=== PATIENT | female | born 1985 ===

== ENCOUNTER 2017-02-24 04:59 | Inpatient (IN) | payer OTHER ==
[2017-02-24 05:24] VITALS: BMI 31.0
[2017-02-24] MEDS ORDERED: PENICILLIN G POTASSIUM 5 MMU in NS 0.9% (MINI-BAG PLUS) 100 ML IV ONE (06:12)
[2017-02-24] MEDS ORDERED: OXYTOCIN IN LR 500 ML IV ONE ×2 (06:12→18:00)
[2017-02-24] MEDS ORDERED: LACTATED RINGERS 1,000 ML IV SCH ×2 (06:15→16:57)
[2017-02-24] MEDS ORDERED: IV START KIT ONE (06:18)
[2017-02-24] MEDS ORDERED: PENICILLIN G POTASSIUM 5 MMU VIAL ONE (06:22)
[2017-02-24] MEDS ORDERED: NS 0.9% (MINI-BAG PLUS) 100 ML IV ONE (06:22)
[2017-02-24 06:39] LABS: AMPHETAMINES/METHAMPHETAMINES NEGATIVE (NEGATIVE); COCAINE NEGATIVE (NEGATIVE); MARIJUANA POSITIVE (NEGATIVE); METHADONE NEGATIVE (NEGATIVE); OPIATES NEGATIVE (NEGATIVE); TRICYCLIC ANTIDEPRESSANTS NEGATIVE (NEGATIVE)
[2017-02-24 09:09] LABS: HEMATOCRIT 35.8 % (37.0-47.0); HEMOGLOBIN 11.8 gm/l (12.0-16.0); MEAN CELL VOLUME 85.9 fl (81.0-99.0); MEAN CORPUSCULAR HEMOGLOBIN 28.3 pg (27.0-31.0); RED CELL DISTRIBUTION WIDTH 12.9 % (11.5-14.5)
--- NOTE | 2017-02-24 09:25 | PCMAN ---
OB Admission Note - History : 3 Term: 1 : 0 Abortions (S&E): 1 Livin Gestational Age (weeks): 40 Days (#/7): 4 Admit Presentaton:: vertex Membrane Status: Ruptured Rupture (Date): 02/24/17 Rupture (Time): 03:45 Contractions: Yes Contraction Frequency:: rare Heart Rate:: 120 Status:: cat 1 EFW:: 3.5 kg Summary of Course:: Benign course after first trimester with severe hyperemesis gravidarum with 25# wt. loss. Has h/o THC use and will continue. UDS+ in clinic and hosp. Plans to continue use and to breast feed. - Labs Blood Type: A (-) negative Hct/Hgb:: 12 Rubella Status: Immune GBS Status: Positive Abnormal Labs: Urine Toxicology Positive (THC+) - Review of Systems No F/C/N/V. No flu like illness. Feels overall well. Did use asthma inhaler this am. No recent asthma exacerbations. Carpal tunnel, right hip pain started during . - Physical Exam General: Afebrile, No Acute Distress Psych/Mental Status: Mood/Affect Appropriate Neurological: Grossly Intact Lungs: Clear to Auscultation Bilaterally Cardiovascular: Regular Rate and Rhythm, No Murmur Abdomen: Other (gravid, non tender uterus, baby vertex by exam and us.), No Obese, No Tenderness Extremities: No Edema Skin: Warm, Dry, No Rash - Problems (1) Marijuana use Status: Acute Code: F12.10Assessment/Plan: termination clerk use, will breast feed and continue use. Discussion held, information given. No further f/u needed at this time. Low risk for concurrent/other drug use. (2) Normal in multigravida Status: Acute Code: Z34.80Assessment/Plan: Peds: [facility]. PROM: Not in labor, admit, observe. PIT if no labor. BC: Wants PPTL, will get consent for chart. Labor: Desires positional changes, epidural if slow labor. (3) Positive GBS test Status: Acute Code: B95.1Assessment/Plan: Penicillin per protocol. (4) PROM (premature rupture of membranes) Status: Acute Code: O42.90Assessment/Plan: Continue to observe, eat and ambulate. PIT if no labor. (5) Asthma Status: Acute Code: J45.909Assessment/Plan: On daily inhalers, dulera daily and albuterol PRN. Used this am. Avoid hemovate for pp hemorrhage, discussed with pt. and RN. Will order inhalers for use prn. (6) Rh negative state in antepartum period Status: Acute Code: O09.899Assessment/Plan: Rhogam given at 28 weeks. Follow protocol after delivery. (7) Sterilization consult Status: Acute Code: Z30.09Assessment/Plan: Signed consent in clinic, will print for chart.
[2017-02-24] MEDS ORDERED: PENICILLIN G 3 MIL UNIT PREMIX 50 ML IV ONE ×4 (11:33→23:43)
[2017-02-24] MEDS: PENICILLIN G 3 MIL UNIT PREMIX 3 MMU in Premix (D5W) 50 ml 1 EACH IV SCH ×4 (12:06→23:56)
--- NOTE | 2017-02-24 14:24 | PDOC36 ---
Provider Note Subject: Doing well. Cervix /-2. Small forebag noted and broken. Pt. with more uc' s and becoming more uncomfortable. Penicillin in X 2 doses. VSSAF. HR 130 with accel, just put on monitor so no strip available to review currently for category. Pain control with positional changes as UC's continue to increase.
[2017-02-24] MEDS ORDERED: CALCIUM CARBONATE 500 MG TAB.CHEW PO PRN (15:19)
[2017-02-24] MEDS ORDERED: DIPHENHYDRAMINE HCL 50 MG/1 ML VIAL IV PRN (16:57)
[2017-02-24] MEDS ORDERED: NALBUPHINE HCL 20 MG/ML AMP IV PRN (16:57)
[2017-02-24] MEDS ORDERED: EPIDURAL PROCEDURE TRAY ONE (16:57)
[2017-02-24] MEDS ORDERED: NALOXONE HCL 0.4 MG/ML VIAL IV PRN (16:57)
[2017-02-24] MEDS ORDERED: SODIUM CHLORIDE 0.9% 500 ML IV PRN (16:57)
[2017-02-24] MEDS ORDERED: EPHEDRINE SULFATE 50 MG/ML 1ML VIAL IV PRN (16:57)
[2017-02-24] MEDS ORDERED: METOCLOPRAMIDE HCL 5 MG/ML 2ML VIAL IV PRN (16:57)
[2017-02-24] MEDS ORDERED: BUPIVACAINE 0.25% (PRES FREE) 30 ML VIAL ONE (16:57)
[2017-02-24] MEDS ORDERED: ONDANSETRON 4 MG/2ML 2 ML VIAL IV PRN (16:57)
[2017-02-24] MEDS ORDERED: LACTATED RINGERS 500 ML IV PRN (16:57)
[2017-02-24] MEDS ORDERED: FENTANYL/ROPIVACAINE EPIDURAL 250 ML EP ONE (16:59)
[2017-02-24] MEDS ORDERED: EPIDURAL PUMP SET ONE (16:59)
[2017-02-24] MEDS: FENTANYL/ROPIVACAINE EPIDURAL 250 ML EP SCH (17:17)
[2017-02-24] MEDS ORDERED: OXYTOCIN 10 UNITS/ML VIAL ONE (17:59)
[2017-02-24] MEDS ORDERED: MINERAL OIL 25 ML BOT ONE (18:00)
[2017-02-24] MEDS ORDERED: LIDOCAINE Viscous 2% 15 ML UDCUP ONE (18:00)
[2017-02-24] MEDS ORDERED: LIDOCAINE 1% (PRES FREE) 30 ML VIAL ONE (18:00)
[2017-02-24] MEDS ORDERED: PUMP TUBING ONE (18:00)
--- NOTE | 2017-02-24 19:22 | PDOC36 ---
Provider Note Subject: Cervix 7-8/90%/-1. Epidural was placed earlier for maternal comfort. VSSAF. Cat 2 FHT for variable around epidural placement, resolved with fluids/ positional changes. UC's persistent every 2-3 minutes. RN notes/discussion reviewed. Pt. doing much better. Await cervical dilation and advancement to complete.
--- NOTE | 2017-02-24 22:53 | PDOC36 ---
Provider Note Subject: Uc's every 3-4 min, epidural working well. Still with some lof. Exam 8-//- 1. VSSAF. Slow progress. Will work on positional changes and recheck in a few hours. If no change, consider IUPC and PIT. Cat 1 strip followed by cat 2 strip for nova variable, resolved with positional changes/fluid bolus. Discussed with pt. slow change and progress. Questions answered.
[2017-02-24] MEDS: LACTATED RINGERS 1,000 ML IV PRN (23:59)
[2017-02-25] MEDS ORDERED: ALBUTEROL SULFATE 200 PUFFS/INH INHALER IH PRN (01:54)
--- NOTE | 2017-02-25 01:54 | PDOC36 ---
Provider Note Subject: No cervical change despite regular uterine contractions. Cat 1 and 2 FHT's, currently cat 2 for increased heart rate since changing positions. WIll bolus fluid, change positions and re eval in 30 min. Discussed lack of cervical change and options. PIT not an option with tachy and having regular uterine contractions. If uc's slow and tachy resolves then can consider IUPC and PIT. Discussed risks of IUPC and length of ROM. Pt. also with concentrated urine and has received 4 bags of fluid in setting of vomiting. May still be dehydrated. In setting of asthma, will order her inhalers although not SOB now. Will check O2 sat. Pt. a/w long h/o THC use 5-8 times daily and not used in nearly 24 hours. Could be some early withdrawal symptoms in mom as she is having more nausea. Follow closely, reviewed indications for c section etc. Questions answered. VSSAF.
[2017-02-25] MEDS: LACTATED RINGERS 1,000 ML IV PRN (02:43)
[2017-02-25] MEDS ORDERED: ACETAMINOPHEN 500 MG TABLET ONE (02:50)
[2017-02-25] MEDS ORDERED: ACETAMINOPHEN 500 MG TABLET PO ONE (02:52)
--- NOTE | 2017-02-25 03:04 | PDOC36 ---
Provider Note Subject: heart rate down from 180 to 160 with variability. Cat 2 for HR, no variables. Tried hands and knees to get pressure off of pubis/catheter as pt c/ o pain a/w catheter. Had blood tinged urine and RN from day shift said difficult to place. Scanned with hand held us did not see fluid accumulation but limited by low position of head. Catheter replaced to assure not traumatic and good placement. Easy exchange of new catheter with no significant return of urine. Has had 4 L in about 24 hours with probable deficit on presentation to [facility] of 1.5-2L. Will given another fluid bolus. She is averaging about 25ml per hour of urine out. Cervix now 9/90/-1 with probable asynclitic presentation and looked OP with US as well. Last maternal temp 100 axillary. At risk for chorio given prolonged ROM. Will given tylenol 1000mg X 1 and recheck, abx if develops chorio. Discussed possible need for section given arrest of dilation at 9 cm. Add: During note, fht's now at 150 with moderate variability.
[2017-02-25] MEDS ORDERED: PENICILLIN G 3 MIL UNIT PREMIX 50 ML IV ONE ×2 (03:25→07:46)
[2017-02-25] MEDS: PENICILLIN G 3 MIL UNIT PREMIX 3 MMU in Premix (D5W) 50 ml 1 EACH IV SCH ×2 (03:42→07:49)
--- NOTE | 2017-02-25 06:50 | PDOC36 ---
Provider Note Subject: ant lip/0. Doing well. Pain controlled. Cat 1 FHT's. No fever spike. Less pressure in suprapubic area, epidural working well. VSSAF. Having very little uop, has received 5 L of LR in 24 hours. Not drinking fluids as possible c section. Lungs are clear, 1+BLE. No sob. For low uop, will check cmp, bolus another 500. Urrutia has already been replaced. THC dependence: 24 hours without use. Pt with some tachycardia. Follow closely.
[2017-02-25 07:02] LABS: HEMATOCRIT 32.9 % (37.0-47.0); HEMOGLOBIN 11.1 gm/l (12.0-16.0); MEAN CELL VOLUME 84.6 fl (81.0-99.0); MEAN CORPUSCULAR HEMOGLOBIN 28.5 pg (27.0-31.0); MEAN CORPUSCULAR HGB CONC 33.7 g/dl (33.0-37.0); RED CELL DISTRIBUTION WIDTH 13.2 % (11.5-14.5)
[2017-02-25 07:31] LABS: ALBUMIN 2.7 gm/dL (3.5-5.7); CALCIUM 8.6 mg/dL (8.6-10.3)
[2017-02-25] MEDS ORDERED: FORMOTEROL IH SCH (09:00)
[2017-02-25] MEDS ORDERED: MOMETASONE IH SCH (09:00)
[2017-02-25] MEDS ORDERED: CEFAZOLIN SODIUM 2 GRAM DUPLEX 2 G in Premix (D5W) 50 ml 1 EACH IV PRN (09:02)
[2017-02-25] MEDS ORDERED: CEFAZOLIN SODIUM 2 GRAM DUPLEX 50 ML IV ONE (09:05)
[2017-02-25] MEDS ORDERED: LACTATED RINGERS 1,000 ML IV SCH (09:15)
[2017-02-25] MEDS ORDERED: ROPIVACAINE 0.5% 30 ML VIAL ONE (09:31)
[2017-02-25] MEDS ORDERED: FENTANYL 100 MCG/2 ML VIAL ONE (09:31)
[2017-02-25] MEDS ORDERED: LIDOCAINE 2% (PRES FREE) 5 ML VIAL ONE ×2 (09:31→10:44)
--- NOTE | 2017-02-25 09:32 | PDOC36 ---
Provider Note Subject: Pt. with no cervical change despite adequate UC's. Cervix now swollen, all around cervix is felt and head at 0 station. Uc's palpate firm and have been very regular. We discussed the options of IUPC/PIT/Section and given stage 1 arrest at 9 cm with swelling cervix pt. opts and agrees with primary section. I spoke with the patient about the risks and benefits of c section including but not limited to bleeding, infection, damage to bowel/bladder, blood transfusion and the permanence of BTL with other nursing home methods of control available. Pt. agrees with primary section with BTL. Currently, VSSAF, cat 1 FHT's. UOP improved after bolus of 1 more L of LR, on bag # 7 since presentation. CBC/CMP reviewed with elevated CR and decr GFR. will deliver and follow uop closely pp. Dr. Kurtz aware of care and will be in c section.
[2017-02-25] MEDS ORDERED: OXYTOCIN 10 UNITS/ML VIAL ONE ×3 (10:18→11:19)
[2017-02-25] MEDS ORDERED: FAMOTIDINE 10 MG/ML 2ML VIAL ONE (10:26)
[2017-02-25] MEDS ORDERED: METOCLOPRAMIDE HCL 5 MG/ML 2ML VIAL ONE (10:26)
[2017-02-25] MEDS ORDERED: ONDANSETRON 4 MG/2ML 2 ML VIAL ONE (10:26)
[2017-02-25] MEDS ORDERED: MORPHINE SULFATE (DURAMORPH) 1 MG/ML 10ML AMP ONE (10:34)
[2017-02-25] MEDS ORDERED: DIPHENHYDRAMINE HCL 50 MG/1 ML VIAL IV PRN ×2 (10:35→11:20)
[2017-02-25] MEDS ORDERED: HYDROMORPHONE HCL 2 MG/ML SYRINGE IV PRN (10:35)
[2017-02-25] MEDS ORDERED: ONDANSETRON 4 MG/2ML 2 ML VIAL IV PRN ×2 (10:35→11:20)
[2017-02-25] MEDS ORDERED: MORPHINE SULFATE 4 MG/ML SYRINGE IV PRN ×2 (10:35→11:22)
[2017-02-25] MEDS ORDERED: MORPHINE SULFATE 2 MG/ML SYRINGE IV PRN (10:35)
[2017-02-25] MEDS ORDERED: MORPHINE SULFATE 10 MG/ML SYRINGE IV PRN (10:35)
[2017-02-25] MEDS ORDERED: PROMETHAZINE HCL 25 MG/ML VIAL IM PRN (10:35)
[2017-02-25] MEDS ORDERED: EPHEDRINE SULFATE 50 MG/ML 1ML VIAL IV PRN (10:35)
[2017-02-25] MEDS ORDERED: PNEUMOCOCCAL 23-VAL P-SAC VAC 0.5 ML VIAL SUB-Q V ONE (10:35)
[2017-02-25] MEDS ORDERED: NALBUPHINE HCL 20 MG/ML AMP IV PRN (10:35)
[2017-02-25] MEDS ORDERED: HYDROMORPHONE HCL 1 MG/ML SYRINGE IV PRN (10:35)
[2017-02-25] MEDS ORDERED: NALOXONE HCL 0.4 MG/ML VIAL IV PRN (10:35)
[2017-02-25] MEDS ORDERED: OXYCODONE HCL 5 MG TABLET PO PRN (11:20)
[2017-02-25] MEDS ORDERED: DIPHENHYDRAMINE HCL 25 MG CAPSULE PO PRN (11:20)
[2017-02-25] MEDS ORDERED: LANOLIN 50 APPLIC/7G TUBE TP PRN (11:20)
--- NOTE | 2017-02-25 11:42 | PDOC37 ---
Note:: DATE OF PROCEDURE 2017-02-25 PREOPERATIVE DIAGNOSES Term Failure to Progress Desire for Sterility POSTOPERATIVE DIAGNOSES Same PROCEDURE Primary Low Transverse Section and BTL SURGEON August Kurtz MD [facility] SENIOR [employer]WORK SECURITY ARCHITECT Archana Kim MD ANESTHESIA Epidural COMPLICATIONS None ESTIMATED BLOOD LOSS 1,000 mL URINE OUTPUT 125 mL IV FLUIDS 2,200 mL START TIME 10:06 AM IMPLANTS None SPECIMENS Right and Left Fallopian Tubes BRIEF HISTORY 31 yo at 40 4/7 admitted for PROM who progressed over 24 hour period to a rim at 0 station but did not progress further for several hours. OPERATIVE NOTE Verbal and written informed consent was obtained. The patient was taken to the operating room where spinal anesthesia was found to be adequate.~ She was then placed in the dorsal supine position with a leftward tilt and prepped and draped in a sterile fashion.~ Surgical timeout was performed confirming the patient's name, date of , surgical procedure to be performed and any concerns from team members.~ A Pfannenstiel skin incision was then made with the scalpel and carried through to the underlying layer of fascia.~ The fascia was incised in the midline and the incision extended laterally with the Childers scissors.~ The superior aspect of the fascial incision was then grasped with Brooke clamps, elevated and the underlying rectus muscles dissected off bluntly and with Childers scissors.~ Attention was then turned to the inferior aspect of this incision, which in similar fashion was grasped, tented up with Brooke clamps, and the rectus muscle dissected of bluntly with Childers scissors.~ The rectus muscles were then bluntly in the midline, and the peritoneum identified, tented up, and entered sharply with Metzenbaum scissors. ~ The peritoneal incision was then extended superiorly and inferiorly with good visualization of the bladder.~ The bladder was distended and extending up into the pelvis. An Adis retractor was inserted.~ The visceroperitoneum was grasped with smooth pickups, entered with Metzenbaum scissors, and extended laterally. A bladder flap was created by gentle blunt dissection and placed behind the bladder blade. The lower uterine segment was then incised in a transverse fashion with the scalpel.~ The uterine incision was then bluntly extended revealing the amniotic sac which was ruptured with clear fluid.~ The 's head was grasped, flexed and elevated to level of the hysterotomy and the head was then delivered atraumatically.~ The head was ROP. There was thick meconium, but there was a vigorous cry immediately. The mouth and nose were bulb suctioned and the cord clamped and cut after 1 minute.~ The infant was handed off to the waiting resuscitation team.~ Cord gases were not required. The placenta was then removed via cord traction and fundal massage; the uterus was cleared of all clots and debris.~ The uterine incision was repaired with 0 Vicryl in a running, locked fashion.~ The second layer was imbricated with 0 Vicryl in a running fashion. Hemostasis was checked and areas of bleeding were repaired with figure of eight stitches using 0 Vicryl and the Bovie. The gutters were cleared of all clots.~ Hemostasis was carefully checked and found to be satisfactory.~ The peritoneum was reapproximated with 2-0 vicryl in a running fashion. The fascia was reapproximated with 0 Vicryl in a running fashion.~ Bleeding points were Bovie coagulated. The subcutaneous tissue was reapproximated with 0 plain and the skin was closed subcutaneously using 4-0 vicryl with a subcuticular stitch.~ A sterile dressing was placed. The patient tolerated the procedure well.~ Sponge, lap and needle counts were correct times two. The patient was taken to the recovery room in stable condition.
[2017-02-25] MEDS: LACTATED RINGERS 1,000 ML IV SCH (12:28)
[2017-02-25] MEDS: KETOROLAC TROMETHAMINE 30 MG/ML 1 ML VIAL IV SCH ×3 (17:59→23:59)
[2017-02-25] MEDS: HYDROCODONE/ACETAMINOPHEN 5/325MG TABLET PO PRN (22:49)
[2017-02-25] MEDS: DOCUSATE SODIUM 100 MG CAPSULE PO SCH (22:49)
[2017-02-26] MEDS: KETOROLAC TROMETHAMINE 30 MG/ML 1 ML VIAL IV SCH ×2 (05:59→10:50)
[2017-02-26 06:39] LABS: HEMATOCRIT 26.9 % (37.0-47.0)
[2017-02-26 06:54] LABS: CALCIUM 8.2 mg/dL (8.6-10.3)
[2017-02-26] MEDS ORDERED: FERROUS SULFATE (65 Fe) 325 MG TABLET PO SCH (09:00)
--- NOTE | 2017-02-26 10:46 | PDOC44 ---
- Subjective Day: 1 Good UOP postoperatively Reports Flatus, Reports Pain Tolerable, Reports , Reports Lochia Light, Reports Tolerating Regular Diet, Denies Nausea - Objective Temp Pulse Resp BP Pulse Ox 97.9 F 82 16 118/77 98 02/26/17 07:18 02/26/17 07:18 02/26/17 07:18 02/26/17 07:18 02/25/17 12:35 Lab Results 02/26/17 06:07 Hgb 9.0 L D Hct 26.9 L Creatinine 0.8 02/26/17 06:07 Calcium 8.2 L Current Medications Generic Name Dose Route Start Last Admin Trade Name Freq PRN Reason Stop Dose Admin Acetaminophen/Hydrocodone Bitart 1 - 2 tab 02/25/17 11:20 02/25/17 22:49 [place] 5/325 PO 1 tab Q4H PRN Administration Pain (Moderate) Diphenhydramine HCl 25 - 50 mg 02/25/17 11:20 Benadryl PO Q6H PRN Itching (Mild/Moderate) Diphenhydramine HCl 25 - 50 mg 02/25/17 11:20 Benadryl IV Q6H PRN Itching (Severe) Docusate Sodium 100 mg 02/25/17 21:00 02/25/17 22:49 Colace PO 100 mg BID [place] Administration Emollient Ointment 1 applic 02/25/17 11:20 [id number] TP PRN PRN sore nipples Ferrous Sulfate 325 mg 02/26/17 09:00 Ferrous Sulfate PO DAILY [place] Ropivacaine/Fentanyl/NS 250 mls @ 0 mls/hr 02/24/17 16:57 02/24/17 17:17 Fentanyl 2 Mcg/Ml + Ropivacaine 0.125% Ep Bag EP 10 mls/hr EPI [place] Administration Protocol Per Protocol Lactated Ringer's 1,000 mls @ 125 mls/hr 02/25/17 11:30 02/25/17 12:28 Lactated Ringers IV 125 mls/hr .Q8H [place] Administration Morphine Sulfate 4 mg 02/25/17 11:22 Morphine Sulfate IV Q1H PRN Pain Multivi/Iron Carb/Fe Sulf/FA/Prenat 1 tab 02/26/17 09:00 Plus PO DAILY [place] Ondansetron HCl 4 mg 02/25/17 11:20 Zofran IV Q6H PRN Nausea/Vomiting Oxycodone HCl 5 - 10 mg 02/25/17 11:20 Roxicodone PO Q3H PRN Pain (Severe) Sodium Chloride 10 ml 02/25/17 17:00 02/26/17 05:59 Normal Saline 10ml Flush IV 10 ml Q8HR [place] Administration Sodium Chloride 10 ml 02/25/17 16:10 02/26/17 07:26 Normal Saline 10ml Flush IV 10 ml PRN PRN Administration - Physical Exam General: Afebrile Psych/Mental Status: Mood/Affect Appropriate, Judgment/Insight Intact, Bonding Well Neurological: Grossly Intact, Alert HEENT: Atraumatic, EOMI Lungs: Clear to Auscultation Bilaterally, Normal Air Movement Cardiovascular: Regular Rate and Rhythm, Normal S1, Normal S2, No Murmur Fundus: Firm, Midline Extremities: Edema (trace), Normal Pulses Wound SHOP LABORER: Dressing in Place, Dressing Clean/Dry/Intact - Problems:Assessment/Plan (1) Status post primary low transverse section Status: AcuteAssessment/Plan: POD#1 PLTCS with BTL for arrest of dilation at 9cm Meeting postop milestones Pt utox positive, smoked daily MJ during Desires exclusive , discussed high concentration of MJ in breastmilk Encouraged ambulation, get up to shower. Urrutia out (2) Rh negative state in antepartum period Status: AcuteAssessment/Plan: Rhogam given at 28 weeks. Baby is A negative. (3) Marijuana use Status: AcuteAssessment/Plan: retirement use, will breast feed and continue use. Discussion held, information given. Low risk for concurrent/other drug use. SW will be notified, [facility] will be notified per hospital policy (4) Asthma Status: AcuteAssessment/Plan: On daily inhalers, dulera daily and albuterol PRN. Will order inhalers for use prn. (5) Sterilization consult Status: AcuteAssessment/Plan: s/p BTL (6) Acute renal insufficiency Status: AcuteAssessment/Plan: likely 2/2 obstruction, initial Cr of 1.5. Pt rec'd 9L of LR during labor. Cr normalized, now 0.8 today. Excellent diuresis postoperatively.
[2017-02-26] MEDS: DOCUSATE SODIUM 100 MG CAPSULE PO SCH ×2 (10:48→19:24)
[2017-02-26] MEDS: PRENATAL VIT/FE FUMARATE/FA 1 TABLET PO SCH (10:48)
[2017-02-26] MEDS: HYDROCODONE/ACETAMINOPHEN 5/325MG TABLET PO PRN ×3 (10:48→21:41)
[2017-02-26] MEDS: LACTATED RINGERS 1,000 ML IV SCH ×2 (10:49→13:25)
[2017-02-26] MEDS: FENTANYL/ROPIVACAINE EPIDURAL 250 ML EP SCH (10:49)
[2017-02-26] MEDS ORDERED: ALBUTEROL SULFATE MDI 60 PUFFS/INHALER IH PRN (11:46)
[2017-02-26] MEDS ORDERED: IBUPROFEN 800 MG TABLET ONE (11:57)
[2017-02-26] MEDS: IBUPROFEN 800 MG TABLET PO PRN ×2 (12:30→21:41)
[2017-02-27] MEDS: DOCUSATE SODIUM 100 MG CAPSULE PO SCH ×3 (01:53→21:37)
[2017-02-27] MEDS: HYDROCODONE/ACETAMINOPHEN 5/325MG TABLET PO PRN ×2 (01:59→05:54)
[2017-02-27] MEDS: LACTATED RINGERS 1,000 ML IV SCH ×3 (02:01→12:23)
[2017-02-27] MEDS: IBUPROFEN 800 MG TABLET PO PRN ×3 (05:54→21:37)
--- NOTE | 2017-02-27 09:24 | PDOC44 ---
- Subjective Day: 2 doing well. pain is controlled. tolerating regular diet. ambulating and voiding well. Reports Flatus, Reports Pain Tolerable, Reports , Reports Lochia Light, Reports Tolerating Regular Diet - Objective Temp Pulse Resp BP Pulse Ox 98.3 F 74 14 110/80 98 02/27/17 07:15 02/27/17 07:15 02/27/17 07:15 02/27/17 07:15 02/25/17 12:35 Current Medications Generic Name Dose Route Start Last Admin Trade Name Freq PRN Reason Stop Dose Admin Acetaminophen/Hydrocodone Bitart 1 - 2 tab 02/25/17 11:20 02/27/17 05:54 [place] 5/325 PO 1 tab Q4H PRN Administration Pain (Moderate) Albuterol Sulfate 2 puffs 02/26/17 11:46 Ventolin Hfa Mdi IH Q4H PRN Shortness of Breath Diphenhydramine HCl 25 - 50 mg 02/25/17 11:20 Benadryl PO Q6H PRN Itching (Mild/Moderate) Diphenhydramine HCl 25 - 50 mg 02/25/17 11:20 Benadryl IV Q6H PRN Itching (Severe) Docusate Sodium 100 mg 02/25/17 21:00 02/27/17 01:53 Colace PO Not Given BID [facility] Emollient Ointment 1 applic 02/25/17 11:20 [id number] TP PRN PRN sore nipples Ferrous Sulfate 325 mg 02/27/17 09:00 Ferrous Sulfate PO BID [facility] Ropivacaine/Fentanyl/NS 250 mls @ 0 mls/hr 02/24/17 16:57 02/26/17 10:49 Fentanyl 2 Mcg/Ml + Ropivacaine 0.125% Ep Bag EP Not Given EPI [place] Protocol Per Protocol Lactated Ringer's 1,000 mls @ 125 mls/hr 02/25/17 11:30 02/27/17 05:02 Lactated Ringers IV Not Given .Q8H [place] Ibuprofen 800 mg 02/26/17 11:59 02/27/17 05:54 Motrin PO 800 mg Q8H PRN Administration Pain Morphine Sulfate 4 mg 02/25/17 11:22 Morphine Sulfate IV Q1H PRN Pain Multivi/Iron Carb/Fe Sulf/FA/Prenat 1 tab 02/26/17 09:00 02/26/17 10:48 Plus PO 1 tab DAILY [place] Administration Ondansetron HCl 4 mg 02/25/17 11:20 Zofran IV Q6H PRN Nausea/Vomiting Oxycodone HCl 5 - 10 mg 02/25/17 11:20 Roxicodone PO Q3H PRN Pain (Severe) Sodium Chloride 10 ml 02/25/17 17:00 02/27/17 01:59 Normal Saline 10ml Flush IV 10 ml Q8HR [place] Administration Sodium Chloride 10 ml 02/25/17 16:10 02/26/17 16:20 Normal Saline 10ml Flush IV 10 ml PRN PRN Administration - Physical Exam General: Afebrile Neurological: Alert Lungs: Clear to Auscultation Bilaterally Cardiovascular: Regular Rate and Rhythm Breast: Soft Fundus: Firm Abdomen: Normal Bowel Sounds Lochia: Light Rectal Exam: Other Extremities: Other Skin: Normal Color Wound LEAD EMBEDDED SOFTWARE ENGINEER: Well Approximated - Problems:Assessment/Plan (1) Status post primary low transverse section Status: AcuteAssessment/Plan: POD#2 PLTCS with BTL for arrest of dilation at 9cm Pt utox positive, smoked daily MJ during Desires exclusive , discussed high concentration of MJ in breastmilk Encouraged ambulation, get up to shower. voiding well. tolerating regular diet (2) Acute renal insufficiency Status: AcuteAssessment/Plan: likely 2/2 obstruction, initial Cr of 1.5. Pt rec'd 9L of LR during labor. Cr normalized, now 0.8 today. Excellent diuresis postoperatively. doing well now. (3) Marijuana use Status: AcuteAssessment/Plan: [facility] use, will breast feed and continue use. Discussion held, information given. Low risk for concurrent/other drug use. SW will be notified, [facility] will be notified per hospital policy (4) Asthma Status: AcuteAssessment/Plan: On daily inhalers, dulera daily and albuterol PRN. Will order inhalers for use prn. Disposition: Anticipate DC Home Tomorrow
[2017-02-27] MEDS: FERROUS SULFATE (65 Fe) 325 MG TABLET PO SCH ×2 (10:09→21:37)
[2017-02-27] MEDS: PRENATAL VIT/FE FUMARATE/FA 1 TABLET PO SCH (10:09)
--- NOTE | 2017-02-27 11:54 | SURGPATH ---
[facility] [address] [place] [id number] Patient Name: JOHN GONZALEZ MR#: [id number] : 1985 Gender: F Specimen #: [id number] Collected: 02/25/2017 Received: 02/26/2017 Reported: 02/27/2017 Submitting Phys: MELANIE CARO Copy To Phys: [facility] JERILYN TRONCOSO LAUREN Clinical History / Pre-Operative Diagnosis: PERMANENT STERILIZATION Specimen Source / Surgical Procedure Performed: RIGHT FALLOPIAN TUBE SEGMENT (WITH STITCH), LEFT FALLOPIAN TUBE SEGMENT-BILATERAL TUBAL LIGATION Interpretation: RIGHT AND LEFT FALLOPIAN TUBES, TUBAL LIGATION: -SEGMENTS OF FALLOPIAN TUBES PRESENT Electronically Signed Out Shailesh Tracey M.D. Gross Description: The specimen is received in a formalin filled container labeled with the patient's name and "right and left fallopian tubes". Two cylindrical segments of zuniga tissue are 1.3 x 0.5 cm and 1.7 x 0.5 cm. The shorter segment has an attached suture and is inked black. A inbound sales representative cross-section of each is submitted in one cassette. Ottoniel Contreras Microscopic Description: A slide contains unremarkable cross sections of both fallopian tubes. 1: [id number]) Z30.2
[2017-02-28] MEDS: IBUPROFEN 800 MG TABLET PO PRN (05:34)
[2017-02-28 07:31] VITALS: BP 128/85
--- NOTE | 2017-02-28 10:43 | PDOC39B ---
Hospital Course: ADMIT DATE: 02/24/17 DISCHARGE DATE: 02/28/17 ADMISSION DIAGNOSES: IUP at 40 5/7 weeks THC use PROCEDURES: primary LTCS HISTORY OF PRESENT ILLNESS: 31 year old G3 T1 L1 at 40 weeks 5 days presented to [facility] not in active labor. She was observed for short course then started on pitocin augmentation. AROM was performed and patient progressed to 9 cm dilation but did not dilate further after prolonged observation. She was counseled on primary LTCS for delivery. HOSPITAL COURSE: The patient underwent her pLTCS without difficulty except she was noted to have urinary retention which was thought be possible occlusion of her smith. They may have been obstructive uropathy. She did have a bump in her Cr to 1.5 but this resolved after smith was manipulated and she therefore diuresed well. By day of discharge the patient is ambulating, eating, voiding, and passing flatus without difficulty. Pain is controlled and lochia is appropriate. She is breast feeding well. She was counseled several occasions on avoidance of THC use. DHS evaluated the family and cleared them for d/c. She is bonding well with nifant. Short f/u on friday. - Physical Exam Vital Signs: Temp Pulse Resp BP Pulse Ox 98.3 F 74 16 128/85 98 02/28/17 07:15 02/28/17 07:15 02/28/17 07:15 02/28/17 07:15 02/25/17 12:35 General: Afebrile, No Acute Distress Neurological: Alert, Oriented x 4 Lungs: Clear to Auscultation Bilaterally Cardiovascular: Regular Rate and Rhythm Fundus: Firm, Midline Extremities: Full ROM, No Edema Skin: Normal Color, Warm, Dry, Intact, No Rash Wound: Dressing Clean/Dry/Intact, Well Approximated - Discharge Diagnosis (1) Acute renal insufficiency Status: AcuteAssessment/Plan: likely 2/2 obstruction, initial Cr of 1.5. Pt rec'd 9L of LR during labor. Cr normalized, now 0.8. Excellent diuresis postoperatively. doing well now. (2) Marijuana use Status: AcuteAssessment/Plan: medical terminologist use, will breast feed and continue use. Discussion held, information given. Low risk for concurrent/other drug use. SW will be notified, DHS notified per hospital policy and cleared family for d/c. (3) Status post primary low transverse section Status: AcuteAssessment/Plan: POD#3 PLTCS with BTL for arrest of dilation at 9cm Pt utox positive, smoked daily MJ during Desires exclusive , discussed high concentration of MJ in breastmilk D/c today - Discharge Plan Condition: Good Disposition: Home Prescriptions: Docusate Sodium [COLACE 100 MG CAPSULE (F)] 100 mg PO BID #60 Ibuprofen [IBUPROFEN 800 MG TABLET ([facility])] 800 mg PO Q8H PRN #60 PRN Reason: Pain FERROUS SULFATE (65 Fe) [IRON FERROUS SULFATE 325 MG TABLET ([facility])] 325 mg PO BID #60 Lanolin [LANOLIN 7 G TUBE ([facility])] 1 applic TP PRN PRN #10 PRN Reason: Sore Nipples Hydrocodone Bit/Acetaminophen [NORCO 5/325 MG TABLET ([facility])] 1 - 2 tab PO Q4H PRN #10 PRN Reason: Pain (Moderate) Follow-Up: Lesa Cobian PA-C [Primary Care Provider] - 03/03/17
== END 2017-02-28 13:15 | disposition home or self-care (01) | DRG 765 ==
LOC: FBC 04:59 → FBCOUT 04:59 → FBC 06:15
PROVIDERS: ADMIT Family Medicine; ATTEND Family Medicine
PROC: 10H07YZ Insertion of Other Device into Products of Conception, Via Natural or Artificial Opening (ICD-10-PCS; 2017-02-24)
PROC: 4A1H7CZ Monitoring of Products of Conception, Cardiac Rate, Via Natural or Artificial Opening (ICD-10-PCS; 2017-02-24)
PROC: 10D00Z1 Extraction of Products of Conception, Low, Open Approach (ICD-10-PCS; principal; 2017-02-25)
PROC: 0UL70ZZ Occlusion of Bilateral Fallopian Tubes, Open Approach (ICD-10-PCS; 2017-02-25)
DX: O64.8XX0 Obstructed labor due to other malposition and malpresentation, not applicable or unspecified (principal); O99.324 Drug use complicating childbirth; O42.92 Full-term premature rupture of membranes, unspecified as to length of time between rupture and onset of labor; Z3A.40 40 weeks gestation of pregnancy; Z37.0 Single live birth; F12.90 Cannabis use, unspecified, uncomplicated; O99.52 Diseases of the respiratory system complicating childbirth; J45.909 Unspecified asthma, uncomplicated; O99.824 Streptococcus B carrier state complicating childbirth; Z30.2 Encounter for sterilization